=== PATIENT | female | born 1975 | race Caucasian/White ===

== ENCOUNTER 2016-11-30 22:46 | Emergency (ER) | payer OTHER ==
[~2016-11-30] VITALS: Ht 160 cm; Wt 59.0 kg
[~2016-11-30 22:46] MED LIST: ALBUTEROL SULF8.5 GM INH; PREDNISONE50 MG ORAL
[2016-11-30 23:13] VITALS: BP 134/72
--- NOTE | 2016-11-30 23:15 | Emergency Room Report ---
History of Present Illness General Chief Complaint: Female Urogenital Problems Source: Patient Present Illness HPI Patient presents with dysuria and bloating feeling in her lower abdomen. She thought she had a yeast infection and treated herself for this. At this point she believes she has a bladder infection. She's had urinary tract infections before. She denies any fevers, chills, nausea, vomiting, diarrhea. Her last period was November 01 and normal for her. She does not believe she is at this time. Allergies: Coded Allergies: No Known Allergies (Unverified , 02/04/15) Patient History Past Medical History: see triage record Social History: Denies: smoking Social History Narrative works in [employer] Last Menstrual Period: November 01, 2016 Now: No : 1 Para: 0 Reviewed Nursing Documentation: PMH: Agreed, PSxH: Agreed Nursing Documentation-PMH Past Medical History: No Stated History Hx Asthma: Yes Review of Systems All Other Systems: negative except mentioned in HPI Physical Exam Vital Signs Date Time Temp Pulse Resp B/P Pulse Ox O2 Delivery O2 Flow Rate FiO2 11/30/16 22:57 98.2 72 18 134/72 96 Room Air Sp02 EP Interpretation: reviewed, normal General Appearance: well appearing, no apparent distress, GCS 15 Head: normocephalic, atraumatic Eyes: bilateral eye normal inspection ENT: hearing grossly normal, normal voice, moist mucus membranes Neck: full range of motion, supple Respiratory: no respiratory distress, speaking full sentences Musculoskeletal: digits/nails normal, gait/station normal, normal range of motion Neurologic: alert, normal gait, grossly normal Psychiatric: mood/affect normal Skin: no rash Medical Decision Making Diagnostic Impression: Primary Impression: Dysuria ER Course Patient presents with possible UTI. Differential includes UTI, vaginitis amongst others. Urinalysis and urine are sent. The patient declines pain medication at this time. She states she's been treating herself with yeast medication. She is fairly certain she has a bladder infection at this time. Urinalysis shows minimal pyuria. The patient's fairly certain she is a UTI and therefore requesting treatment with antibiotics. It's possible that this is a bacterial vaginosis as opposed to yeast. I stated that after the antibiotics if she's not doing better to followup with her [employer]. She will need to follow up for repeat UA. The patient is stable for outpatient observation and treatment. Laboratory Tests Test 11/30/16 23:10 Urine Color Pale yellow Urine Appearance Clear Urine pH 5 (4.5-8.0) Urine Specific [place] 1.015 (1.005-1.035) Urine Protein Negative (NEGATIVE) Urine Glucose (UA) Negative (NEGATIVE) Urine Ketones Negative (NEGATIVE) Urine Occult Blood 4+ (NEGATIVE) H Urine Nitrite Negative (NEGATIVE) Urine Bilirubin Negative (NEGATIVE) Urine Urobilinogen Normal MG/DL (0.0-1.0) Urine Leukocyte Esterase 1+ (NEGATIVE) H Urine RBC 2-4 /HPF (0 - 2) H Urine WBC 2-4 /HPF (0 - 2) Urine Squamous Epithelial Cells Moderate /LPF (NONE/OCC) H Urine Bacteria Few /HPF (NONE) Urine HCG, Qualitative Negative Last Vital Signs Date Time Temp Pulse Resp B/P Pulse Ox O2 Delivery O2 Flow Rate FiO2 12/01/16 00:07 98.2 18 134/72 96 Room Air 11/30/16 22:57 72 Status: improved Disposition: HOME, SELF-CARE Condition: Improved Scripts Nitrofurantoin Monohyd/M-Cryst* (MACROBID 100 MG*) 100 Mg Capsule 100 MG ORAL EVERY 12 HOURS, #14 CAP Prov: Peter Medina M.D. 11/30/16 Peter Medina M.D. Nov 30, 2016 23:15
[2016-11-30 23:30] LABS: APPEARANCE,URINE CLEAR; KETONES,URINE NEGATIVE (NEGATIVE); LEUKOCYTE ESTERASE ,URINE 1+ (NEGATIVE); NITRITE,URINE NEGATIVE (NEGATIVE); PH,URINE 5 (4.5-8.0); PROTEIN,URINE NEGATIVE (NEGATIVE); UROBILINOGEN,URINE NORMAL MG/DL (0.0-1.0)
[2016-11-30 23:46] LABS: BACTERIA,URINE FEW /HPF; SQUAMOUS EPITHELIAL CELL,UR MODERATE /LPF (NONE/OCC)
[2016-11-30] MEDS ORDERED: NITROFURANTOIN100 M2 ORAL (23:56)
[2016-12-01 00:07] VITALS: BP 134/72
== END 2016-12-01 00:07 | disposition home or self-care (01) ==
LOC: EMR 23:30
DX: R30.0 Dysuria (principal); J45.909 Unspecified asthma, uncomplicated
CPT/HCPCS: 81003; 81025; 99283

== ENCOUNTER 2017-10-31 14:09 | Emergency (ER) | payer OTHER ==
[~2017-10-31] VITALS: Ht 165.1 cm; Wt 54.4 kg
[~2017-10-31 14:09] MED LIST changes: +NITROFURANTOIN100 M2 ORAL
--- NOTE | 2017-10-31 14:24 | Emergency Room Report ---
History of Present Illness General Chief Complaint: Laceration Present Illness HPI 32-year-old female presents to the emergency department complaining of laceration to the dorsum of her right middle finger since 1 AM this morning. Patient reports that she cut herself on a large piece of glass that broke from a wine glass. Patient denies taking blood thinning medications. Patient does not know when her last tetanus vaccination was. Patient denies pain at this time. Patient reports that she is right-hand dominant and her work is very much dependent on her ability to type. Denies numbness tingling or loss of sensation or gross motor movements of the extremities. Allergies: Coded Allergies: No Known Allergies (Unverified , 02/04/15) Patient History Past Medical History: see triage record Past Surgical History: none Pertinent Family History: none Now: No Reviewed Nursing Documentation: PMH: Agreed; PSxH: Agreed Nursing Documentation-PMH Hx Asthma: Yes Review of Systems All Other Systems: negative except mentioned in HPI Physical Exam Vital Signs Date Time Temp Pulse Resp B/P (MAP) Pulse Ox O2 Delivery O2 Flow Rate FiO2 10/31/17 14:14 98.0 57 20 114/74 99 Room Air 98.1 Sp02 EP Interpretation: reviewed, normal General Appearance: no apparent distress, alert, GCS 15, non-toxic Head: normocephalic, atraumatic ENT: hearing grossly normal, normal voice Neck: full range of motion Respiratory: lungs clear, normal breath sounds, speaking full sentences Cardiovascular #1: regular rate, rhythm, normal capillary refill Musculoskeletal: back normal, gait/station normal, normal range of motion, non- tender Neurologic: alert, oriented x3, responsive, motor strength/tone normal, sensory intact, normal gait, speech normal, grossly normal Psychiatric: judgement/insight normal Skin: normal color, no rash, warm/dry, well hydrated, laceration - Dorsal RMF laceration approx 2 cm in length - Right middle finger above the PIP joint flap laceration not bleeding at this time no obvious foreign body. Procedures Laceration/Wound Repair Laceration/Wound Repair : Consent: Verbal Wound Location: upper extremity - right middle finger- dorsum at PIP Wound's Depth, Shape: flap Wound Length (cm): 2 Wound Explored: clean Irrigated w/ Saline (ccs): 500 Anesthesia: 1% Lidocaine Volume Anesthetic (ccs): 2 Wound Debrided: minimal Wound Repaired With: sutures Suture Size/Type: 5:0, proline Number of Sutures: 3 Layer Closure?: No Sterile Dressing Applied?: Yes Splint Applied?: Yes Type of Splint Applied: finger splint Sling Applied?: No Patient Tolerated: Well Complications: None Medical Decision Making PA Attestation Dr. julio is my supervising Physician whom patient management has been discussed with. Diagnostic Impression: Primary Impression: Laceration ER Course 32-year-old female presents to the emergency department complaining of laceration to the dorsum of her right middle finger since 1 AM this morning. Patient reports that she cut herself on a large piece of glass that broke from a wine glass. Patient denies taking blood thinning medications. Patient does not know when her last tetanus vaccination was. Patient denies pain at this time. Patient reports that she is right-hand dominant and her work is very much dependent on her ability to type. Denies numbness tingling or loss of sensation or gross motor movements of the extremities. Ddx considered but are not limited to laceration, tendon injury, cellulitis, amputation Vital signs: are WNL, pt. is afebrile H&PE are most consistent with: Dorsal RMF laceration approx 2 cm in length - Right middle finger above the PIP joint flap laceration not bleeding at this time no obvious foreign body. ORDERS: none required at this time, the diagnosis is clinical ED INTERVENTIONS: -Tetanus vaccine was administered as pt. vaccination status was unknown. - The wound was copiously irrigated with normal saline, and explored for foreign body for which no FB was found. - pt. is anesthetized with 1%lidocaine without epi. - The wound was approximated and closed using 3 interrupted 4.0 Prolene sutures. -Bacitracin and sterile dressing is applied. - Right finger Splint applied by inspector technician. Pt. remains neurovascularly intact. Discussed with patient: That we make every effort to approximate the laceration as best as we can so that scarring will be as cosmetically pleasing as possible with our limited cosmetic skill set in the Emergency dept. Regardless of our best efforts there will be scarring after laceration repair. The extent of scarring is unknown at this time. DISCHARGE: At this time pt. is stable for d/c to home. Will provide printed patient care instructions, and any necessary prescriptions. Care plan and follow up instructions have been discussed with the patient prior to discharge. Last Vital Signs Date Time Temp Pulse Resp B/P (MAP) Pulse Ox O2 Delivery O2 Flow Rate FiO2 10/31/17 14:14 98.0 57 20 114/74 99 Room Air 98.1 Disposition: HOME, SELF-CARE Condition: Stable Scripts Bacitracin/Polymyxin B Sulfate (BACITRACIN-POLYMYXIN OINTMENT) 28.35 Gm Oint...g. 1 APPLIC TP BID, #28.3 GM Prov: Sandie Ohara 10/31/17 Cephalexin* (KEFLEX*) 500 Mg Capsule 500 MG ORAL EVERY 12 HOURS for 7 Days, #14 CAP 0 Refills Prov: Sandie Ohara 10/31/17 Patient Instructions: Laceration Care, Adult Additional Instructions: Take medications as directed. Sutures to be removed in 10 days keep finger splint on keep wound clean and dry take oral antibiotics as prescribed. Follow up with a Primary Care Provider in 3-5 days, even if your symptoms have resolved. Return sooner to ED if new symptoms occur, or current symptoms become worse. - Please note that this Emergency Department Report was dictated using [employer] transcriptionist technology software, occasionally this can lead to erroneous entry secondary to interpretation by the dictation equipment. Sandie Ohara Oct 31, 2017 14:24
[2017-10-31] MEDS ORDERED: BACITRACIN-P28.35 GM TP (14:25)
[2017-10-31] MEDS ORDERED: CEPHALEXIN500 MG ORAL (14:25)
[2017-10-31] MEDS ORDERED: Tetanus/Diptheria/Pertussis Vaccine 0.5ml Syr IM ONE (14:30)
[2017-10-31] MEDS ORDERED: Lidocaine 2% MPF 5ml Vial INJ ONE (14:45)
[2017-10-31] MEDS ORDERED: Bacitracin Oint UD TOPIC ONE (15:30)
[2017-10-31 15:51] VITALS: BP 114/74
== END 2017-10-31 15:53 | disposition home or self-care (01) ==
LOC: EMR 14:41
DX: S61.212A Laceration without foreign body of right middle finger without damage to nail, initial encounter (principal); W25.XXXA Contact with sharp glass, initial encounter; Y92.9 Unspecified place or not applicable; Z23 Encounter for immunization; J45.909 Unspecified asthma, uncomplicated
CPT/HCPCS: 90471; 90715; 96372; 99284

== ENCOUNTER 2019-10-15 20:16 | Emergency (ER) | payer MEDICAID, OTHER ==
[~2019-10-15] VITALS: Ht 160 cm; Wt 61.2 kg
[~2019-10-15 20:16] MED LIST changes: +BACITRACIN-P28.35 GM TP; +CEPHALEXIN500 MG ORAL
--- NOTE | 2019-10-15 20:34 | NUR ---
ED Nurse Note: pt presents to ED c/o tick bite. she states that she was hiking 2 hours ago and felt a bite on her abd, her boyfriend pulled out what appeared to be a tick and now there is a small puncture wound on her abd that is red and painful. pt denies any fevers, the affected area appears to be red
--- NOTE | 2019-10-15 20:42 | Emergency Room Report ---
History of Present Illness General Chief Complaint: Animal Bite Present Illness HPI 44-year-old female with no significant past medical history other than hypothyroidism currently taking levothyroxine here complaining of a tick bite on right side of abdomen that started today while hiking. Patient reports that she did remove the tick denies any fever and chills, pain at the area. Complains of minimal irritation and pruritus. The area does not appear to be raised or cellulitic. Denies fever chills, cough or congestion, shortness of breath, nausea vomiting. Denies recent travel. Denies . (Rachel Martinez) Allergies: Coded Allergies: No Known Allergies (Unverified , 02/04/15) COVID-19 Screening Contact w/high risk pt: No Recent Travel to affected area: No Experienced COVID-19 symptoms?: No COVID-19 Testing performed COSMETOLOGIST APPRENTICE: No (Rachel Martinez) Patient History Past Medical History: see triage record Past Surgical History: none Pertinent Family History: none Last Menstrual Period: 08/2019 Now: No Immunizations: UTD Reviewed Nursing Documentation: PMH: Agreed; PSxH: Agreed (Rachel Martinez) Nursing Documentation-PMH Hx Asthma: Yes (Rachel Martinez) Review of Systems All Other Systems: negative except mentioned in HPI (Rachel Martinez) Physical Exam Vital Signs Date Time Temp Pulse Resp B/P (MAP) Pulse Ox O2 Delivery O2 Flow Rate FiO2 10/15/19 20:22 98.2 77 16 118/71 (87) 98 Room Air Sp02 EP Interpretation: reviewed, normal General Appearance: no apparent distress, alert, GCS 15, non-toxic Head: normocephalic, atraumatic Eyes: bilateral eye normal inspection, bilateral eye PERRL ENT: hearing grossly normal, normal pharynx, no angioedema, normal voice Neck: full range of motion, supple/symm/no masses Respiratory: chest non-tender, lungs clear, normal breath sounds, speaking full sentences Cardiovascular #1: regular rate, rhythm, no edema Gastrointestinal: non tender, soft Rectal: deferred Musculoskeletal: back normal Neurologic: alert, motor strength/tone normal, oriented x3, sensory intact, responsive, speech normal Psychiatric: judgement/insight normal, memory normal, mood/affect normal, no suicidal/homicidal ideation Skin: other - Small noninfected tick bite right lower quadrant abdomen Lymphatic: no adenopathy (Rachel Martinez) Medical Decision Making PA Attestation All diagnoses and treatment plans were reviewed and discussed with my supervising physician Dr. Medina (Rachel Martinez) Diagnostic Impression: Primary Impression: Tick bite of abdomen Qualified Codes: S30.861A - Insect bite (nonvenomous) of abdominal wall, initial encounter; W57.XXXA - Bitten or stung by nonvenomous insect and other nonvenomous arthropods, initial encounter ER Course 44-year-old female with no significant past medical history other than hypothyroidism currently taking levothyroxine here complaining of a tick bite on right side of abdomen that started today while hiking. Patient reports that she did remove the tick denies any fever and chills, pain at the area. Complains of minimal irritation and pruritus. The area does not appear to be raised or cellulitic. Denies fever chills, cough or congestion, shortness of breath, nausea vomiting. Denies recent travel. Denies . Ddx considered but are not limited to : Cellulitis, Lyme disease, infected tick bite, noninfected tick bite Vital signs: are WNL, pt. is afebrile H&PE are most consistent with: Tick bite ORDERS: Urine test, mupirocin, hydrocortisone cream ED INTERVENTIONS:NONE DISCHARGE: At this time pt. is stable for d/c to home. Will provide printed patient care instructions, and any necessary prescriptions. Care plan and follow up instructions have been discussed with the patient prior to discharge. Patient take medication as directed, follow primary doctor, if worsening symptom return to emergency room. (Rachel Martinez) ER Course Discussed treatment plan with physician lead dental assistant. (Peter Medina MD) Last Vital Signs Date Time Temp Pulse Resp B/P (MAP) Pulse Ox O2 Delivery O2 Flow Rate FiO2 10/15/19 20:22 98.2 77 16 118/71 (87) 98 Room Air (Rachel Martinez) Disposition: HOME, SELF-CARE Condition: Stable Scripts Mupirocin* (MUPIROCIN*) 22 Gm Oint...g. 1 APPLIC TOPIC THREE TIMES A DAY, #22 GM Prov: Rahcel Martinez 10/15/19 Hydrocortisone/Aloe (Hydrocortisone/Aloe 1% Cream*) Y Cr 1 APPLIC TOPIC Q6H PRN for Itching, #30 GM Prov: Rachel Martinez 10/15/19 Referrals: NON PHYSICIAN (PCP) Patient Instructions: Tick Bite Information, [id number] Additional Instructions: Take medication as directed, follow primary doctor, if worsening symptoms return to the emergency room Rachel Martinez October 15, 2019 20:42 Peter Medina MD October 16, 2019 02:17
[2019-10-15] MEDS ORDERED: DOXYCYCLINE MO100 M2 PO (20:43)
[2019-10-15] MEDS ORDERED: HYDROCORTISONE-30 GM TOPIC (20:43)
[2019-10-15 20:46] VITALS: BP 118/71
[2019-10-15] MEDS ORDERED: MUPIROCIN22 GM TOPIC (20:49)
[2019-10-15 21:06] VITALS: BP 118/71
--- NOTE | 2019-10-15 21:06 | NUR ---
ER DISCHARGE NOTE: Patient is cleared to be discharged per ERMD, pt is aox4, on room air, with stable vital signs. pt was given dc and prescription instructions, pt was able to verbalize understanding, pt id band removed without complications. pt is able to ambulate with steady gait. pt took all belongings.
== END 2019-10-15 21:06 | disposition home or self-care (01) ==
LOC: EMR 20:30
DX: S30.861A Insect bite (nonvenomous) of abdominal wall, initial encounter (principal); W57.XXXA Bitten or stung by nonvenomous insect and other nonvenomous arthropods, initial encounter; E03.9 Hypothyroidism, unspecified
CPT/HCPCS: 81025; 99283

== ENCOUNTER 2019-10-25 06:34 | Emergency (ER) | payer OTHER ==
[~2019-10-25] VITALS: Ht 160 cm; Wt 61.2 kg
[~2019-10-25 06:34] MED LIST changes: +DOXYCYCLINE MO100 M2 PO; +HYDROCORTISONE-30 GM TOPIC; +MUPIROCIN22 GM TOPIC
[2019-10-25 06:50] VITALS: BP 127/82
[2019-10-25] MEDS ORDERED: Doxycycline Monohydrate 100mg ORAL ONE (07:15)
[2019-10-25] MEDS ORDERED: HYDROCORTISONE 2.5% TOPIC ONE (07:15)
[2019-10-25] MEDS ORDERED: DOXYCYCLINE MO100 MG ORAL (07:17)
[2019-10-25] MEDS ORDERED: HYDROCORTISO453.6 G3 TP (07:17)
[2019-10-25 07:28] VITALS: BP 127/82
--- NOTE | 2019-10-25 08:55 | Emergency Room Report ---
History of Present Illness General Chief Complaint: Skin Rash/Abscess Source: Patient Present Illness HPI 44-year-old female presents with rash. Notes a rash to her legs. States it is weeping. Itchy. Denies pain. States that she was seen here on 10/13 after hiking and had a possible tick bite to her abdomen. Was prescribed antibiotic ointment and hydrocortisone cream. States that the bite seems to have resolved but since then has developed this rash to her legs. Denies any known food or drug allergies. Denies fevers or chills. Denies runny nose cough or congestion. No other aggravating relieving factors. Denies any other associated symptoms Allergies: Coded Allergies: No Known Allergies (Unverified , 02/04/15) COVID-19 Screening Contact w/high risk pt: No Recent Travel to affected area: No Experienced COVID-19 symptoms?: No COVID-19 Testing performed HYDRO MECHANIC: No Patient History Past Surgical History: none Pertinent Family History: none Social History: Denies: smoking, alcohol use, drug use Last Menstrual Period: 10/22 Now: No : 1 Para: 0 Immunizations: UTD Reviewed Nursing Documentation: PMH: Agreed; PSxH: Agreed Nursing Documentation-PMH Hx Asthma: Yes Review of Systems All Other Systems: negative except mentioned in HPI Physical Exam Vital Signs Date Time Temp Pulse Resp B/P (MAP) Pulse Ox O2 Delivery O2 Flow Rate FiO2 10/25/19 06:43 98.4 75 20 127/82 (97) 98 Room Air Sp02 EP Interpretation: reviewed, normal General Appearance: no apparent distress, alert, GCS 15, non-toxic Head: normocephalic, atraumatic Eyes: bilateral eye normal inspection, bilateral eye PERRL ENT: hearing grossly normal, normal pharynx, no angioedema, normal voice Neck: full range of motion, supple/symm/no masses Respiratory: chest non-tender, lungs clear, normal breath sounds, speaking full sentences Cardiovascular #1: regular rate, rhythm, no edema Cardiovascular #2: 2+ carotid (R), 2+ carotid (L), 2+ radial (R), 2+ radial (L) , 2+ dorsalis pedis (R), 2+ dorsalis pedis (L) Gastrointestinal: normal bowel sounds, non tender, soft, non-distended, no guarding, no rebound Rectal: deferred Genitourinary: normal inspection, no CVA tenderness Musculoskeletal: back normal, normal range of motion, gait/station normal, non- tender Neurologic: alert, motor strength/tone normal, oriented x3, sensory intact, responsive, speech normal Psychiatric: judgement/insight normal, memory normal, mood/affect normal, no suicidal/homicidal ideation Reflexes: 3+ bicep (R), 3+ bicep (L), 3+ tricep (R), 3+ tricep (L), 3+ knee (R) , 3+ knee (L) Skin: rash - weeping rash to RLE. nonerythematous base. Lymphatic: no adenopathy Medical Decision Making Diagnostic Impression: Primary Impression: Rash and other nonspecific skin eruption ER Course Hospital Course 44-year-old female presents to ED with rash to leg Differential diagnoses include: Cellulitis, dermatitis, insect bite, abscess Clinical course Patient placed on stretcher. After initial history, physical exam reveals a female in no acute distress. On exam the presumed tick bite on the lower abdomen seems to be healing well. No erythema or induration or discharge or fluctuance. There appears to be a weeping rash noted to the right lower extremity. Nonerythematous base. Somewhat vesicular. Patient afebrile, nontoxic-appearing. Given history of hiking this appears closely in line with a contact dermatitis from poison colleen or poison oak. Patient was urged to take oral antibiotics at the time but she declined. Will prescribe doxycycline. We will also prescribe hydrocortisone cream. Patient given doxycycline in ED. Continue the mupirocin as prescribed. Safe for discharge for close outpatient follow-up. States she has a PMD. I would recommend outpatient dermatology evaluation as well Diagnosis - rash stable and discharged to home with prescription for Doxycycline, hydrocortisone. continue mupricin as directed. Instructed to followup with PMD. Instructed return to ED if symptoms recur or worsen Last Vital Signs Date Time Temp Pulse Resp B/P (MAP) Pulse Ox O2 Delivery O2 Flow Rate FiO2 10/25/19 07:28 98.4 72 20 127/82 98 Room Air Status: improved Disposition: HOME, SELF-CARE Condition: Stable Scripts Hydrocortisone Acetate (Hydrocortisone Acetate 2.5% Oint) 453.6 Gm Oint...g. 453.6 GM TP BID, #453 GM Prov: Jesus Baez MD 10/25/19 Doxycycline Monohydrate* (DOXYCYCLINE MONOHYDRATE*) 100 Mg Capsule 100 MG ORAL Q12H, #14 CAP 0 Refills Prov: Jesus Baez MD 10/25/19 Referrals: NON PHYSICIAN (PCP) Patient Instructions: Poison Colleen Dermatitis Additional Instructions: you need to followup with dermatology as outpatient Jesus Baez MD October 25, 2019 08:55
== END 2019-10-25 07:29 | disposition home or self-care (01) ==
LOC: EMR 07:00
DX: R21 Rash and other nonspecific skin eruption (principal)
CPT/HCPCS: 99282